=== PATIENT | female | born 1970 | race Caucasian/White ===

== ENCOUNTER 2019-03-19 09:09 | Emergency (ER) | payer BC, SELFPAY ==
[2019-03-19 09:17] VITALS: BP 107/64; PULSE 84; RESP 20; TEMP 37.1; O2SAT 100
--- NOTE | 2019-03-19 09:36 | ED.GENADULT ---
HPI - General Adult General Chief complaint: Upper Respiratory Infection Stated complaint: fever/cough Time Seen by Provider: 03/19/19 09:36 Source: patient and RN notes reviewed Mode of arrival: ambulatory Limitations: no limitations History of Present Illness HPI narrative: 48-year-old female with complaints of upper respiratory infection symptoms, fever, congestion, fatigue, cough, and bilateral ear pain for 4 days. Zarbee's cough medicine with little relief. Dry cough with intermittent productive cough (phlegm). Rhinorrhea and nasal congestion. No exacerbating factors. High fevers, highest 102.5F, orally with intermittent chills. No nausea, vomiting, and abdominal pain. Denies chest pain, dyspnea, coughing up blood, difficulty swallowing, jaw pain, dental pain, facial pain, foreign body sensation, and rash. Chloé denies being , LMP 03/15/2019. Some parts of this dictation were generated by voice recognition software and may contain typographical and/or grammatical inaccuracies. Related Data Home Medications Medication Instructions Recorded Confirmed Vitamin D3 03/19/19 thyroid (pork) [[place] Thyroid] 7.5 mg PO DAILY 03/19/19 03/19/19 thyroid (pork) [[place] Thyroid] 60 mg PO DAILY 03/19/19 03/19/19 Allergies Allergy/AdvReac Type Severity Reaction Status Date / Time meperidine Allergy Mild Rash Verified 03/19/19 09:25 Review of Systems Review of Systems: Narrative: CONSTITUTIONAL: Complains of fever, intermittent chills. Denies , sweats. EYES: Denies visual changes, redness, discharge. ENT: Complains of rhinorrhea, congestion, bilateral otalgia. Denies sore throat. CARDIOVASCULAR: Denies chest pain, palpitations, edema. RESPIRATORY: Denies dyspnea, wheezing. Complains of dry cough, intermittent productive cough. GASTROINTESTINAL: Denies abdominal pain, nausea, vomiting, diarrhea. GENITOURINARY: Denies dysuria, hematuria, abnormal discharge. SKIN: Denies rash or itching. MUSCULOSKELETAL: Denies acute back pain, joint pain. Complains of myalgia. NEUROLOGIC: Denies numbness or focal weakness. PSYCHIATRIC: Denies anxiety or depression. All systems reviewed & are unremarkable except as noted in HPI and below PMFSH Past Medical History Medical History (Updated 03/19/19 @ 09:56 by ERICA Jordan) Hypothyroidism Kidney stones Surgical History Surgical History (Updated 03/19/19 @ 09:51 by ERICA Jordan) History of lithotripsy Hx of sinus surgery Due to a bone spur on the right nasal passage Family History Family History (Updated 03/19/19 @ 09:52 by ERICA Jordan) Grandparent Liver cancer Grandparent Carcinoma of colon Social History Social History (Updated 03/19/19 @ 09:53 by ERICA Jordan) Smoking status: Never smoker Second hand tobacco smoke exposure: No Alcohol intake: current Alcohol use details: Socially Substance use: never Living arrangements: with family Occupation/Education: occupation Additional occupation/education comments: Daycare worker Gender identity (if verbalized by the patient): Female Comments At time of signature, agree with nurse past medical, surgical, social, and family history. There is no relevant family history pertinent to the presenting complaint. Exam Narrative: Exam Narrative: GENERAL: This is a well-nourished, well-developed patient, in no apparent distress. Speaks in full sentences and ambulates with steady gait without dyspnea. HEAD: normocephalic, atraumatic. EYES: PERRL. Sclera clear/white. Vision is grossly intact. EARS: External ears normal, auditory canals clear and without drainage, LT TMs normal without perforation. RT TM with mild fluid no drainage or erythema. Hearing grossly intact. NOSE: External nose normal with no obvious nasal discharge, nares with mild redness and enlarged turbinates, clear rhinorrhea. MOUTH: Moist, Geographic tongue. THROAT: Mucous membranes moist,
== END 2019-03-19 10:19 | disposition home or self-care (01) ==
PROVIDERS: Emergency Provider Nurse Practitioner Family
DX: J10.1 Influenza due to other identified influenza virus with other respiratory manifestations (principal); E03.9 Hypothyroidism, unspecified
CPT/HCPCS: 87804; 99213; G0463

== ENCOUNTER → 2020-12-18 14:12 | Outpatient (CLI) | payer BC, SELFPAY ==
--- NOTE | ~2020-12-18 | XR_ITS ---
XR lumbar spine min 4V 12/18/2020 14:36 Indication: Low back pain. Procedure: 5 views of the lumbar spine Comparison: No prior studies for comparison. Findings: There is mild disc narrowing at L5-S1. There is grade 1 spondylolisthesis at L5-S1 secondar y to spondylolysis. No acute fracture is identified. Vertebral body heights are maintained. Sacral fo ramen are symmetric. Mild levocurvature of the lumbar spine. Pedicles intact. There is mild disc narr owing at L2-3 and L5-S1. Impression: 1: Mild lumbar spondylosis with grade 1 spondylolisthesis at L5-S1 secondary to bilateral spondylolys is. Reviewed, dictated and finalized at location A. SWABBER Impression: 1: Mild lumbar spondylosis with grade 1 spondylolisthesis at L5-S1 secondary to bilateral spondylolysis.
== END ==
PROVIDERS: PCP Family Medicine; Visit Provider Chiropractor
DX: M54.50 Low back pain, unspecified (principal); M47.816 Spondylosis without myelopathy or radiculopathy, lumbar region
CPT/HCPCS: 72110

== ENCOUNTER → 2021-11-06 12:06 | Outpatient (CLI) | payer BC, SELFPAY ==
--- NOTE | ~2021-11-06 | DEXA_ITS ---
Bone Density Report Name: OSWALDO ESPARZA Age: 51 Sex: Female Ethnicity: White Date of : 1970 Indication: screening for osteoporosis; height loss; Referring Provider: HENNY JUNG Study: Bone densitometry was performed. Exam Date: November 06, 2021 Accession number: [id number] Bone Density: Region BMD T-score Z-score Classification AP Spine (L1-L4) 0.708 -3.1 -2.2 Osteoporosis Femoral Neck (Left) 0.702 -1.3 -0.4 Osteopenia Total Hip (Left) 0.738 -1.7 -1.1 Osteopenia Femoral Neck (Right) 0.655 -1.8 -0.9 Osteopenia Total Hip (Right) 0.707 -1.9 -1.4 Osteopenia Total Hip Mean 0.723 -1.8 -1.3 Osteopenia World Health Organization criteria for BMD impression classify patients as: Normal (T-score at or above -1.0), Osteopenia (T-score between -1.0 and -2.5), or Osteoporosis (T-score at or below -2.5). 10-year Fracture Risk: FRAX not reported because: Premenopausal woman Some T-score for Spine Total or Hip Total or Femoral Neck at or below -2.5 Clinical Information Provided by Patient: Has used the following medications: Vitamin D, ARMOUR THYROID Patient maximum height was 64.0 No regular weight bearing exercise Drinks caffeinated beverages Onset of menses at age 15 Premenopausal Number of children 1 Missed period for more than 6 months in a row Impression: The patient's bone mass is below expected range for age, gender and ethnicity based on the Total Spine Z-score. Discussion: BONE DENSITY IS ABNORMALLY LOW FOR AGE, SEX, AND RACE. This patient's lowest Z-score is -2.0 or more below average for age, sex, and race at one or more sites. This may be due to low peak bone mass or to excessive bone loss. There may be some underlying disease or condition contributing to reduced bone mass. Further evaluation should be considered. Although there is a predictable association between low bone mass and the risk of osteoporotic fractures in untreated postmenopausal women, there are no data relating bone density and fracture risk in younger women. The ISCD position is that the diagnosis of ?low bone mass? or ?osteoporosis? should not be made on densitometric criteria alone. WHO criteria only apply to postmenopausal women. The 10-year fracture risk calculated by FRAX is less than the threshold recommended by the National Osteoporosis Foundation (NOF) for treatment for postmenopausal women, and no threshold has been established for premenopausal women. All treatment decisions require clinical judgment and consideration of individual patient factors, including patient preferences, comorbidities, previous drug use, risk factors not captured in the FRAX model (e.g., frailty, falls, vitamin D deficiency, increased bone turnover, interval significant decline in bone density) and possible under or overestimation of fracture risk
== END ==
PROVIDERS: PCP Family Medicine; Visit Provider Obstetrics & Gynecology Gynecology
DX: Z78.0 Asymptomatic menopausal state (principal); M85.89 Other specified disorders of bone density and structure, multiple sites; M81.0 Age-related osteoporosis without current pathological fracture
CPT/HCPCS: 77080

== ENCOUNTER 2022-03-26 08:01 | Emergency (ER) | payer BC, SELFPAY ==
--- NOTE | 2022-03-26 08:17 | ED.URI ---
HPI - URI/Sore Throat General Chief Complaint: Upper Respiratory Infection Stated Complaint: SORE THROAT/LOSING VOICE Time Seen by Provider: 03/26/22 08:17 Source: patient, RN notes reviewed and old records reviewed Mode of arrival: ambulatory Limitations: no limitations History of Present Illness HPI Narrative: 51 year old female who presents to [facility] care with complaints of 1 week duration of sore throat, sinus congestion and drainage of yellowish mucous,loss of voice since Tuesday. Patient reports that she has not taken any OTC cold medications or any antihistamines. 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 Patient reports that she had a fever on Tuesday of 101F otherwise she has not had any fevers, denies any acute pain voices some soreness only. patient reports that she has been COVID vaccinated. MD elicited complaint: sore throat and other (loss of voice) Pertinent past history: other (sinus surgery) Onset (ago): week(s) Pain scale (0-10): 0 Description of mucous: yellow Associated symptoms: voice changes, rhinorrhea, nasal congestion and sore throat Treatments prior to arrival: none Related Data Home Medications Medication Instructions Recorded Confirmed thyroid (pork) 15 mg tablet 7.5 mg PO DAILY 03/19/19 03/26/22 ([place] Thyroid) thyroid (pork) 60 mg tablet 60 mg PO DAILY 03/19/19 03/26/22 ([place] Thyroid) Osteoprime 4 tab-cap PO DAILY 03/26/22 03/26/22 Strontium Cap 950 mg PO DAILY 03/26/22 cholecalciferol (vitamin D3) 250 250 mcg PO DAILY 03/26/22 03/26/22 mcg (10,000 unit) capsule Allergies Allergy/AdvReac Type Severity Reaction Status Date / Time meperidine Allergy Mild Rash Verified 03/26/22 08:12 Review of Systems Review of Systems: CONSTITUTIONAL: Denies present malaise, chills, sweats, or fever. EYES: Denies visual changes, redness, or discharge. ENT: Reports rhinorrhea, congestion,no sinus pain, no otalgia,positive for sore throat. CARDIOVASCULAR: Denies chest pain, palpitations, or edema. RESPIRATORY: Reports no cough.? Denies dyspnea. GASTROINTESTINAL: Denies abdominal pain, nausea, vomiting, diarrhea SKIN: Denies rash or itching. MUSCULOSKELETAL: Denies myalgia. NEUROLOGIC: Denies headache. All systems reviewed & are unremarkable except as noted in HPI and below PMFSH Past Medical History Medical History (Updated 03/26/22 @ 08:39 by Ellie Ly NP) Hypothyroidism Kidney stones Surgical History Surgical History (Updated 03/19/19 @ 09:51 by ERICA Jordan) History of lithotripsy Hx of sinus surgery Due to a bone spur on the right nasal passage Family History Family History (Updated 03/19/19 @ 09:52 by ERICA Jordan) Grandparent Liver cancer Grandparent Carcinoma of colon Social History Social History (Updated 03/19/19 @ 09:53 by ERICA Jordan) Smoking status: Never smoker Second hand tobacco smoke exposure: No Alcohol intake: current Alcohol use details: Socially Substance use: never Living arrangements: with family Occupation/Education: occupation Additional occupation/education comments: Daycare worker Gender identity (if verbalized by the patient): Female Comments At time of signature, agree with nursing past medical, surgical, social and family history. There is no relevant family history pertinent to the presenting complaint Exam Narrative: GENERAL: Well-appearing, well-nourished, and in no acute distress. HEAD: Normocephalic EYES: PERRLA, conjunctivae clear ENT: Nares clear, turbinates edematous and erythematous, clear to yellow discharge. Mucous membranes moist. TM pearly melendez with dull light reflex bilaterally; no tragal tenderness. Oropharynx erythematous without lesions. Tonsils not enlarged and without exudate, no drooling, positive hoarseness, no trismus, uvula midline with mild swelling. NECK: Supple. No lymphadenopath
[2022-03-26 08:22] VITALS: BP 101/61; PULSE 80; RESP 16; TEMP 36.3; O2SAT 100
== END 2022-03-26 08:40 | disposition home or self-care (01) ==
PROVIDERS: Emergency Provider Registered Nurse; PCP Family Medicine
DX: J02.9 Acute pharyngitis, unspecified (principal); E03.9 Hypothyroidism, unspecified
CPT/HCPCS: 87081; 87880; 99203; G0463

== ENCOUNTER → 2022-08-27 07:45 | Outpatient (CLI) | payer BC, SELFPAY ==
--- NOTE | ~2022-08-27 | US_ITS ---
Pelvic ultrasound. Clinical History: Excessive and frequent menstruation Technique: Realtime transabdominal and transvaginal scanning of the pelvis was performed. Color flow Doppler and Doppler spectral analysis were performed. Findings: The uterus is retroverted. The endometrial stripe has a thickness of 10 mm. No focal mass is identified. The right ovary measures 3.2 x 4.2 x 3.5 cm. Right ovarian cyst measures up to 3.5 cm in diameter, wi th a single thin septation. The left ovary measures 3.1 x 1.4 x 1.2 cm. No significant left ovarian or adnexal mass is seen. Vascular flow present in both ovaries on Doppler spectral analysis. There is minimal amount of free fluid in the cul de sac. Impression: 3.5 cm minimally complex right ovarian cyst, with overall benign appearance. Trace free fluid. Reviewed, dictated and finalized at [facility]. Impression: 3.5 cm minimally complex right ovarian cyst, with overall benign appearance. Trace free fluid.
== END ==
PROVIDERS: PCP Family Medicine; Visit Provider Obstetrics & Gynecology Gynecology
DX: N92.0 Excessive and frequent menstruation with regular cycle (principal); N83.201 Unspecified ovarian cyst, right side
CPT/HCPCS: 76830

== ENCOUNTER → 2022-12-24 09:28 | Outpatient (CLI) | payer BC, SELFPAY ==
--- NOTE | ~2022-12-24 | MR_ITS ---
MRI of the lumbar spine Clinical History: Radiculopathy Technique: Axial T2-weighted images, and sagittal T1-weighted, T2-weighted, and T2 fat-sat images wer e acquired. Findings: No fracture seen. There is 3 mm anterolisthesis of L5 over S1. No suspicious bone marrow si gnal abnormality seen. At L1-L2, L2-L3, L3 over L4, L4-L5, there is no disc bulge or herniation. There are minimal facet lili nt degenerative changes. No spinal canal stenosis or neural foraminal narrowing at these levels. At L5-S1, there is diffuse disc bulge/uncovering with minimal facet joint degenerative change. No spi nal canal stenosis. There is mild bilateral neural foraminal narrowing. Paravertebral soft tissues are unremarkable. Impression: 3 mm anterolisthesis of L5 over S1, with mild bilateral neural foraminal narrowing at L5-S1. Reviewed, dictated and finalized at [facility]. IC SPEAKER Impression: 3 mm anterolisthesis of L5 over S1, with mild bilateral neural foraminal narrow ing at L5-S1.
== END ==
PROVIDERS: PCP Family Medicine; Visit Provider Family Medicine
DX: M54.16 Radiculopathy, lumbar region (principal)
CPT/HCPCS: 72148

== ENCOUNTER → 2022-12-29 07:43 | Outpatient (CLI) | payer BC, SELFPAY ==
--- NOTE | ~2022-12-29 | US_ITS ---
EXAMINATION: US pelvic complete w TV DATE: 12/29/2022 08:20 INDICATION: Right ovarian cyst follow-up TECHNIQUE: Multiple transabdominal and endovaginal sonographic images of the pelvis were obtained. COMPARISON: 08/27/2022 FINDINGS: The uterus measures 6.8 x 4.6 x 3.5 cm. The endometrial complex measures 4 mm. The right ov rinku measures 1.8 x 2.3 x 2.4 cm. No persistent right ovarian cyst is identified. The left ovary measu res 1.8 x 1.9 x 1.2 cm. There is normal vascular flow in the ovaries. There is no free fluid in the p zenia. IMPRESSION: 1. No persistent right ovarian cyst identified. Reviewed, dictated and finalized at location F. L [employer]
== END ==
PROVIDERS: PCP Family Medicine; Visit Provider Obstetrics & Gynecology Gynecology
DX: N83.201 Unspecified ovarian cyst, right side (principal)
CPT/HCPCS: 76830; 76856

== ENCOUNTER 2024-05-07 13:27 | Outpatient (CLI) | payer BC, SELFPAY ==
--- NOTE | ~2024-05-07 | XR_ITS ---
XR lumbar spine min 4V 05/07/2024 13:41 Indication: Lumbago with sciatica. Procedure: 5 views of the lumbar spine Comparison: 12/18/2020 Findings: There is stable grade 1 spondylolisthesis at L5-S1 secondary to bilateral spondylolysis. Th ere is disc narrowing at L5-S1. Vertebral body heights are maintained. No fracture or traumatic malal ignment is seen. There is levoscoliosis centered at L1-2. Pedicles intact. Moderate colonic fecal donald ding. Lung bases unremarkable. Impression: 1: Mild lumbar spondylosis with grade 1 spondylolisthesis at L5-S1. Reviewed, dictated and finalized at location A. Impression: 1: Mild lumbar spondylosis with grade 1 spondylolisthesis at L5-S1.
== END 2024-05-07 13:28 | disposition home or self-care (01) ==
PROVIDERS: PCP Family Medicine; Visit Provider Chiropractor
DX: M47.816 Spondylosis without myelopathy or radiculopathy, lumbar region (principal); M43.17 Spondylolisthesis, lumbosacral region
CPT/HCPCS: 72110

== ENCOUNTER 2024-06-15 10:35 | Outpatient (CLI) | payer BC, SELFPAY ==
--- NOTE | ~2024-06-15 | MR_ITS ---
MRI of the lumbar spine Clinical History: Back pain, right sciatica Technique: Axial T2-weighted images, and sagittal T1-weighted, T2-weighted, and T2 fat-sat images wer e acquired. COMPARISON: 12/24/2022 Findings: No acute fracture or subluxations identified. Osseous alignment is unchanged from prior exa m. No bone marrow signal reality seen. At L1-L2, L2-L3, L3-L4, L4-L5, there is no disc bulge or herniation. There are minimal facet joint de generative changes at these levels. No spinal canal stenosis or neural foraminal narrowing at these l evels. At L5-S1, there is a large right paracentral disc extrusion, probably impinging the exiting right L5- S1 level nerve root, as well as the descending right-sided S1-S2 level nerve root. No [place] spinal ca nal stenosis. There is mild left neural foraminal narrowing, and moderate right neural foraminal narr owing. Impression: Large right paracentral disc extrusion at L5-S1, which may impinge both the right L5-S1 and S1-S2 lev el nerve roots. Reviewed, dictated and finalized at location M. Impression: Large right paracentral disc extrusion at L5-S1, which may impinge both the rig ht L5-S1 and S1-S2 level nerve roots.
== END 2024-06-15 10:36 | disposition home or self-care (01) ==
LOC: GOSHIMG 10:36
PROVIDERS: PCP Family Medicine
DX: M51.27 Other intervertebral disc displacement, lumbosacral region (principal)
CPT/HCPCS: 72148